=== PATIENT | male | born 1975 | race African-American/Black ===

== ENCOUNTER 2020-09-25 22:39 | Inpatient (IN) | payer OTHER ==
[2020-09-25] MEDS ORDERED: Piperacillin/Tazobactam 4.5 GM VIAL ONE (23:10)
[2020-09-25] MEDS ORDERED: cefTRIAXone\\ROCEPHIN 2 GM VIAL ONE (23:10)
[2020-09-25 23:28] LABS: Hemoglobin 10.1 g/dL (13.5-17.5); Mean Corpuscular HGB CONC 31.9 g/dL (32.0-36.0); Mean Corpuscular Hemoglobin 26.4 pg (27.0-33.0); Mean Platelet Volume 8.5 fl (7.4-10.4); Platelet Count 327 10x3/uL (150-450); RBC Distribution Width 14.7 % (11.5-14.5); Red Blood Cell (RBC) Count 3.82 10x6/uL (4.32-5.72); White Blood Cell (WBC) Count 24.8 10x3/uL (3.5-10.5)
[2020-09-25 23:41] LABS: PTT 41.4 sec (22.0-33.0)
[2020-09-25 23:45] LABS: ALT (SGPT) 11 U/L (8-55); AST (SGOT) 10 U/L (5-34); Albumin 3.5 g/dL (3.5-5.0); Alkaline Phosphatase 65 U/L (40-110); Anion Gap 12 mmol/L (10-20); BUN (Urea Nitrogen) 9 mg/dL (8.9-20.6); Bilirubin, Total 0.3 mg/dL (0.2-1.2); Calc. Creatinine Clearance 0 mL/min (70-130); Calcium 8.6 mg/dL (7.8-10.44); Carbon Dioxide 22 mmol/L (22-29); Chloride 104 mmol/L (98-107); Globulin 3.9 g/dL (2.4-3.5); Glucose 93 mg/dL (70-105); Potassium 3.1 mmol/L (3.5-5.1); Protein, Total 7.4 g/dL (6.0-8.3); Sodium 135 mmol/L (136-145)
[2020-09-26] MEDS ORDERED: Potassium Chloride 20 MEQ TAB ONE (00:11)
[2020-09-26 00:41] LABS: Band 10 % (5-11); Eosinophils 1 % (0-10); Lymphocytes 8 % (21-51); Monocytes 6 % (0-10); Reactive Lymphocytes 2 % (0-10)
[2020-09-26 00:42] LABS: Neutrophil 73 % (42-75)
[2020-09-26 00:43] LABS: Anisocytosis SLIGHT = 6-15 cells (100X) (0-5/hpf); Microcytosis SLIGHT = 6-15 cells (100X) (0-5/hpf)
[2020-09-26 00:44] LABS: Dohle Bodies SLIGHT; Large Platelets SLIGHT; Platelet Morphology Comment Appears Adequate
[2020-09-26 00:45] LABS: MDiff Complete? YES; Manual Diff?? YES
[2020-09-26] MEDS ORDERED: Morphine 4 MG/ML VIAL ONE (01:02)
[2020-09-26 01:55] LABS: Bilirubin Neg (Negative); Blood, Urine 150 (Negative); Clarity Clear (Clear); Glucose, Urine (Dipstick) Normal (Negative); Ketone, Urine Negative (Negative); Leukocyte 100 (Negative); Nitrite Positive (Negative); Protein, Urine (Dipstick) Negative (Neg-Trace); Specific Gravity, Urine 1.005 (1.002-1.036); Urobilinogen Normal mg/dL (Less than 2)
[2020-09-26 02:32] LABS: Bacteria/HPF 2+ HPF (None Seen); Mucous/LPF Rare LPF (<2+); Squamous Epithelial 0-3 HPF (0-3)
[2020-09-26] MEDS ORDERED: Ibuprofen 200 MG TAB ONE (03:00)
[2020-09-26] MEDS ORDERED: Piperacillin/Tazobactam 4.5 GM VIAL ONE ×2 (04:17→08:48)
[2020-09-26] MEDS ORDERED: Acetaminophen 500 MG TAB ONE (04:48)
[2020-09-26] MEDS ORDERED: HYDROcodone/Acetaminophen 5/325 mg Tablet ONE (07:16)
[2020-09-26] MEDS ORDERED: Piperacillin/Tazobactam 3.375 GM VIAL ONE ×3 (09:21→16:04)
[2020-09-26] MEDS ORDERED: Acetaminophen 325 MG TAB PO PRN (09:51)
[2020-09-26] MEDS ORDERED: Senokot S 8.6-50 MG TAB PO PRN (09:51)
[2020-09-26] MEDS ORDERED: Potassium Chloride 20 MEQ TAB PO SCH (13:45)
[2020-09-26] MEDS ORDERED: Gabapentin 300 MG CAP PO SCH (15:00)
[2020-09-26] MEDS ORDERED: Baclofen 10 MG TAB PO SCH (15:00)
[2020-09-26] MEDS: Piperacillin/Tazobactam 3.375 GM in Sodium Chloride 0.9% 100 ML IVPB SCH ×2 (16:14→23:47)
[2020-09-26 21:21] VITALS: BMI 28.8
[2020-09-26] MEDS: Gabapentin 300 MG CAP PO SCH (21:46)
[2020-09-26] MEDS: HYDROcodone/Acetaminophen 5/325 mg Tablet PO PRN (21:47)
[2020-09-26] MEDS: Famotidine 20 MG TAB PO SCH (21:47)
[2020-09-26] MEDS: Baclofen 10 MG TAB PO SCH (21:50)
[2020-09-26] MEDS: Linezolid 600 MG in Premix Bag 1 BAG IVPB SCH (21:51)
[2020-09-27] MEDS: HYDROcodone/Acetaminophen 5/325 mg Tablet PO PRN ×4 (04:37→22:23)
[2020-09-27] MEDS: Piperacillin/Tazobactam 3.375 GM in Sodium Chloride 0.9% 100 ML IVPB SCH ×3 (04:50→22:25)
[2020-09-27 06:10] LABS: #Eosinphils 0.4 10x3/uL (0.0-0.5); #Monocytes 0.7 10x3/uL (0.0-1.1); #Neutrophils 14.7 10x3/uL (1.5-8.4); %Basophils 0.2 % (0.0-2.0); %Eosinophils 2.1 % (0.0-6.0); %Lymphocytes 11.2 % (18.0-47.0); %Monocytes 4.1 % (0.0-10.0); %Neutrophils 81.6 % (40.0-75.0); Hemoglobin 9.3 g/dL (13.5-17.5); Mean Corpuscular HGB CONC 31.2 g/dL (32.0-36.0); Mean Corpuscular Hemoglobin 26.2 pg (27.0-33.0); Mean Corpuscular Volume 83.9 fl (81.2-95.1); Mean Platelet Volume 8.5 fl (7.4-10.4); Platelet Count 310 10x3/uL (150-450); RBC Distribution Width 14.9 % (11.5-14.5); Red Blood Cell (RBC) Count 3.55 10x6/uL (4.32-5.72)
[2020-09-27 06:23] LABS: Anion Gap 12 mmol/L (10-20); BUN (Urea Nitrogen) 7 mg/dL (8.9-20.6); Calc. Creatinine Clearance 181 mL/min (70-130); Calcium 8.3 mg/dL (7.8-10.44); Carbon Dioxide 21 mmol/L (22-29); Chloride 106 mmol/L (98-107); Glucose 86 mg/dL (70-105); Potassium 3.7 mmol/L (3.5-5.1); Sodium 135 mmol/L (136-145)
[2020-09-27] MEDS ORDERED: FLU VACC QS2020-21(6MOS UP)/PF 60 MCG/0.5 ML SYRINGE IM ONE (09:00)
[2020-09-27] MEDS: Lisinopril 20 MG TAB PO SCH (09:02)
[2020-09-27] MEDS: Baclofen 10 MG TAB PO SCH ×3 (09:03→21:43)
[2020-09-27] MEDS: Gabapentin 300 MG CAP PO SCH ×3 (09:03→21:42)
[2020-09-27] MEDS: Famotidine 20 MG TAB PO SCH ×2 (09:04→21:28)
[2020-09-27] MEDS: Hydrochlorothiazide 25 MG TAB PO SCH (09:11)
[2020-09-27] MEDS: Linezolid 600 MG in Premix Bag 1 BAG IVPB SCH ×2 (09:12→21:31)
[2020-09-27 10:23] LABS: INR-International Normal Ratio 1.8; Prothrombin Time 18.7 sec (9.5-12.1)
[2020-09-27] MEDS: tiZANidine HCl 4 MG TAB PO SCH (21:27)
[2020-09-27] MEDS: Warfarin Sodium 10 MG TAB PO SCH (21:43)
[2020-09-28] MEDS: HYDROcodone/Acetaminophen 5/325 mg Tablet PO PRN ×4 (05:04→21:02)
[2020-09-28] MEDS: Piperacillin/Tazobactam 3.375 GM in Sodium Chloride 0.9% 100 ML IVPB SCH ×3 (05:15→21:03)
[2020-09-28 06:46] LABS: #Eosinphils 0.4 10x3/uL (0.0-0.5); #Monocytes 0.5 10x3/uL (0.0-1.1); %Basophils 0.2 % (0.0-2.0); %Eosinophils 3.3 % (0.0-6.0); %Lymphocytes 16.3 % (18.0-47.0); %Monocytes 4.4 % (0.0-10.0); Hemoglobin 9.7 g/dL (13.5-17.5); Mean Corpuscular HGB CONC 31.2 g/dL (32.0-36.0); Mean Corpuscular Hemoglobin 26.1 pg (27.0-33.0); Mean Corpuscular Volume 83.6 fl (81.2-95.1); Mean Platelet Volume 8.8 fl (7.4-10.4); Platelet Count 359 10x3/uL (150-450); RBC Distribution Width 14.7 % (11.5-14.5); Red Blood Cell (RBC) Count 3.72 10x6/uL (4.32-5.72)
[2020-09-28 06:53] LABS: Anion Gap 12 mmol/L (10-20); BUN (Urea Nitrogen) 4 mg/dL (8.9-20.6); Calc. Creatinine Clearance 186 mL/min (70-130); Calcium 8.8 mg/dL (7.8-10.44); Carbon Dioxide 26 mmol/L (22-29); Chloride 106 mmol/L (98-107); Glucose 93 mg/dL (70-105); Potassium 3.7 mmol/L (3.5-5.1); Sodium 140 mmol/L (136-145)
[2020-09-28 07:01] LABS: INR-International Normal Ratio 1.7; Prothrombin Time 17.8 sec (9.5-12.1)
[2020-09-28] MEDS: Lisinopril 20 MG TAB PO SCH (09:28)
[2020-09-28] MEDS: Famotidine 20 MG TAB PO SCH ×2 (09:28→21:02)
[2020-09-28] MEDS: tiZANidine HCl 4 MG TAB PO SCH ×2 (09:28→21:02)
[2020-09-28] MEDS: Baclofen 10 MG TAB PO SCH ×3 (09:28→21:02)
[2020-09-28] MEDS: Gabapentin 300 MG CAP PO SCH ×3 (09:29→21:04)
[2020-09-28] MEDS: Linezolid 600 MG in Premix Bag 1 BAG IVPB SCH ×2 (09:30→21:03)
[2020-09-28] MEDS: Hydrochlorothiazide 25 MG TAB PO SCH (09:31)
[2020-09-28] MEDS: Warfarin Sodium 10 MG TAB PO SCH (16:15)
[2020-09-29] MEDS: Loperamide HCl 2 MG CAP PO PRN (01:41)
[2020-09-29] MEDS: HYDROcodone/Acetaminophen 5/325 mg Tablet PO PRN ×4 (01:41→16:04)
[2020-09-29] MEDS: Piperacillin/Tazobactam 3.375 GM in Sodium Chloride 0.9% 100 ML IVPB SCH ×3 (05:11→21:25)
[2020-09-29 06:57] LABS: #Eosinphils 0.3 10x3/uL (0.0-0.5); #Monocytes 0.4 10x3/uL (0.0-1.1); #Neutrophils 6.9 10x3/uL (1.5-8.4); %Basophils 0.2 % (0.0-2.0); %Eosinophils 2.9 % (0.0-6.0); %Lymphocytes 21.2 % (18.0-47.0); %Monocytes 4.5 % (0.0-10.0); %Neutrophils 70.4 % (40.0-75.0); Hemoglobin 10.1 g/dL (13.5-17.5); Mean Corpuscular HGB CONC 30.6 g/dL (32.0-36.0); Mean Corpuscular Volume 85.1 fl (81.2-95.1); Mean Platelet Volume 8.4 fl (7.4-10.4); Platelet Count 449 10x3/uL (150-450); RBC Distribution Width 14.8 % (11.5-14.5); Red Blood Cell (RBC) Count 3.88 10x6/uL (4.32-5.72); White Blood Cell (WBC) Count 9.8 10x3/uL (3.5-10.5)
[2020-09-29 07:10] LABS: Anion Gap 12 mmol/L (10-20); BUN (Urea Nitrogen) 6 mg/dL (8.9-20.6); Calc. Creatinine Clearance 169 mL/min (70-130); Calcium 9.2 mg/dL (7.8-10.44); Carbon Dioxide 26 mmol/L (22-29); Chloride 106 mmol/L (98-107); Glucose 113 mg/dL (70-105); Potassium 4.4 mmol/L (3.5-5.1); Sodium 140 mmol/L (136-145)
[2020-09-29 07:21] LABS: INR-International Normal Ratio 2.1; Prothrombin Time 20.8 sec (9.5-12.1)
[2020-09-29] MEDS: Baclofen 10 MG TAB PO SCH ×3 (10:42→21:21)
[2020-09-29] MEDS: tiZANidine HCl 4 MG TAB PO SCH ×2 (10:42→21:21)
[2020-09-29] MEDS: Lisinopril 20 MG TAB PO SCH (10:43)
[2020-09-29] MEDS: Famotidine 20 MG TAB PO SCH ×2 (10:43→21:21)
[2020-09-29] MEDS: Gabapentin 300 MG CAP PO SCH ×3 (10:43→21:21)
[2020-09-29] MEDS: Hydrochlorothiazide 25 MG TAB PO SCH (10:44)
[2020-09-29] MEDS: Linezolid 600 MG in Premix Bag 1 BAG IVPB SCH ×2 (10:44→21:22)
[2020-09-29] MEDS: Warfarin Sodium 10 MG TAB PO SCH (16:06)
[2020-09-29 20:59] LABS: SARS-CoV-2 PCR by NAA Not Detected (NotDetected)
[2020-09-30] MEDS: HYDROcodone/Acetaminophen 5/325 mg Tablet PO PRN ×3 (00:25→14:11)
[2020-09-30] MEDS: Loperamide HCl 2 MG CAP PO PRN ×2 (01:19→11:24)
[2020-09-30] MEDS: Piperacillin/Tazobactam 3.375 GM in Sodium Chloride 0.9% 100 ML IVPB SCH ×2 (06:15→13:19)
[2020-09-30] MEDS: Linezolid 600 MG in Premix Bag 1 BAG IVPB SCH (08:24)
[2020-09-30] MEDS: Famotidine 20 MG TAB PO SCH (08:24)
[2020-09-30] MEDS: Lisinopril 20 MG TAB PO SCH (08:24)
[2020-09-30] MEDS: Baclofen 10 MG TAB PO SCH ×2 (08:24→13:19)
[2020-09-30] MEDS: Hydrochlorothiazide 25 MG TAB PO SCH (08:25)
[2020-09-30] MEDS: tiZANidine HCl 4 MG TAB PO SCH (08:25)
[2020-09-30] MEDS: Gabapentin 300 MG CAP PO SCH ×2 (08:25→13:19)
[2020-09-30 12:37] VITALS: BP 154/71; TEMP 98.2
== END 2020-09-30 16:48 | DRG 871 ==
LOC: CSHERS 22:39 → EEVIPCON 09-26 09:00 → CSHERHOLD 09-26 09:00 → CSHPP 09-26 18:46 → CSHERHOLD 09-26 18:46 → CSHTELE 09-26 18:51 → OBSVTOIN 09-28 09:33
PROVIDERS: ADMIT Family Medicine; ATTEND Family Medicine
DX: A41.9 Sepsis, unspecified organism (principal); G82.50 Quadriplegia, unspecified; N39.0 Urinary tract infection, site not specified; L03.116 Cellulitis of left lower limb; Z20.822 Contact with and (suspected) exposure to COVID-19; I82.412 Acute embolism and thrombosis of left femoral vein; I10 Essential (primary) hypertension; Z99.3 Dependence on wheelchair; Z79.01 Long term (current) use of anticoagulants; Z79.899 Other long term (current) drug therapy; Z88.1 Allergy status to other antibiotic agents
CPT/HCPCS: 36415; 71045; 80048; 80053; 81003; 81015; 83605; 85025; 85610; 85652; 85730; 86140; 87040; 87086; 87635; 93005; 96365; 96366; 96367; 96374; 96375; 96376; G0378; J0696; J2020; J2270; J2543; J3490; U0003; U0005

== ENCOUNTER 2021-06-19 15:00 | Inpatient (IN) | payer OTHER ==
[2021-06-19 17:13] LABS: Prothrombin Time 10.9 sec (9.5-12.1)
[2021-06-19 17:14] LABS: #Basophils 0.1 10x3/uL (0.0-0.2); #Eosinphils 0.2 10x3/uL (0.0-0.5); #Monocytes 0.6 10x3/uL (0.0-1.1); #Neutrophils 10.5 10x3/uL (1.5-8.4); %Basophils 0.4 % (0.0-2.0); %Eosinophils 2.5 % (0.0-6.0); %Lymphocytes 10.8 % (18.0-47.0); %Monocytes 4.4 % (0.0-10.0); Hemoglobin 12.1 g/dL (13.5-17.5); Mean Corpuscular HGB CONC 30.4 g/dL (32.0-36.0); Mean Corpuscular Hemoglobin 24.8 pg (27.0-33.0); Mean Corpuscular Volume 81.7 fl (81.2-95.1); Mean Platelet Volume 9.1 fl (7.4-10.4); Platelet Count 385 10x3/uL (150-450); RBC Distribution Width 15.3 % (11.5-14.5); Red Blood Cell (RBC) Count 4.87 10x6/uL (4.32-5.72); White Blood Cell (WBC) Count 12.8 10x3/uL (3.5-10.5)
[2021-06-19 17:15] LABS: ALT (SGPT) 15 U/L (8-55); AST (SGOT) 15 U/L (5-34); Albumin 3.9 g/dL (3.5-5.0); Alkaline Phosphatase 72 U/L (40-110); Anion Gap 13 mmol/L (10-20); BUN (Urea Nitrogen) 8 mg/dL (8.9-20.6); Bilirubin, Total 0.6 mg/dL (0.2-1.2); Calc. Creatinine Clearance 0 mL/min (70-130); Calcium 9.8 mg/dL (7.8-10.44); Carbon Dioxide 24 mmol/L (22-29); Globulin 5.1 g/dL (2.4-3.5); Glucose 94 mg/dL (70-105); Potassium 3.8 mmol/L (3.5-5.1); Sodium 135 mmol/L (136-145)
[2021-06-19 17:31] LABS: Bilirubin Neg (Negative); Blood, Urine 50 (Negative); Clarity Clear (Clear); Glucose, Urine (Dipstick) Normal (Negative); Ketone, Urine Negative (Negative); Leukocyte 25 (Negative); Nitrite Negative (Negative); Protein, Urine (Dipstick) Negative (Neg-Trace); Specific Gravity, Urine 1.005 (1.002-1.036)
[2021-06-19 17:31] LABS: Chloride 102 mmol/L (98-107)
[2021-06-19 17:50] LABS: Large Platelets SLIGHT; Platelet Morphology Comment Appears Adequate; RBC Morphology Normal
[2021-06-19 18:17] LABS: Bacteria/HPF None Seen HPF (None Seen); RBC/HPF 0-3 HPF (0-3); Squamous Epithelial 0-3 HPF (0-3); WBC/HPF None Seen HPF (0-3)
[2021-06-19] MEDS ORDERED: Senokot S 8.6-50 MG TAB PO PRN (20:42)
[2021-06-19] MEDS ORDERED: Acetaminophen 325 MG TAB PO PRN (20:42)
[2021-06-19 21:30] VITALS: BMI 21.7
[2021-06-19] MEDS ORDERED: Baclofen 10 MG TAB PO SCH (21:45)
[2021-06-19] MEDS ORDERED: Gabapentin 400 MG CAP PO SCH (21:45)
[2021-06-19] MEDS ORDERED: Vancomycin 1.5 GRAM/300 ML BAG 1.5 GM in Premix Bag 1 BAG IVPB SCH (22:00)
[2021-06-19] MEDS: Cefepime 2 GM in Sodium Chloride 0.9% 100 ML IVPB SCH (22:20)
[2021-06-19] MEDS: Lactated Ringer's 1,000 ML IV SCH (22:20)
[2021-06-20] MEDS: HYDROcodone/Acetaminophen 5/325 mg Tablet PO PRN ×4 (05:38→22:21)
[2021-06-20] MEDS: Cefepime 2 GM in Sodium Chloride 0.9% 100 ML IVPB SCH ×3 (05:39→22:20)
[2021-06-20 05:54] LABS: Anion Gap 10 mmol/L (10-20); BUN (Urea Nitrogen) 7 mg/dL (8.9-20.6); Calc. Creatinine Clearance 131 mL/min (70-130); Calcium 8.6 mg/dL (7.8-10.44); Carbon Dioxide 24 mmol/L (22-29); Chloride 107 mmol/L (98-107); Glucose 104 mg/dL (70-105); Potassium 3.8 mmol/L (3.5-5.1); Sodium 137 mmol/L (136-145)
[2021-06-20 05:59] LABS: #Eosinphils 0.5 10x3/uL (0.0-0.5); #Monocytes 0.8 10x3/uL (0.0-1.1); #Neutrophils 7.8 10x3/uL (1.5-8.4); %Basophils 0.4 % (0.0-2.0); %Eosinophils 4.2 % (0.0-6.0); %Lymphocytes 15.7 % (18.0-47.0); %Monocytes 7.7 % (0.0-10.0); %Neutrophils 71.4 % (40.0-75.0); Hemoglobin 8.7 g/dL (13.5-17.5); Mean Corpuscular HGB CONC 30.7 g/dL (32.0-36.0); Mean Corpuscular Hemoglobin 25.1 pg (27.0-33.0); Mean Corpuscular Volume 81.8 fl (81.2-95.1); Mean Platelet Volume 8.6 fl (7.4-10.4); Platelet Count 334 10x3/uL (150-450); RBC Distribution Width 15.3 % (11.5-14.5); Red Blood Cell (RBC) Count 3.46 10x6/uL (4.32-5.72); White Blood Cell (WBC) Count 10.9 10x3/uL (3.5-10.5)
[2021-06-20] MEDS: Vancomycin HCl 1 GM in Sodium Chloride 0.9% 250 ML 250 ML IVPB SCH ×2 (06:35→14:23)
[2021-06-20] MEDS: Lactated Ringer's 1,000 ML IV SCH ×2 (07:54→13:19)
[2021-06-20] MEDS ORDERED: FLU VACC QS2021-22(6MOS UP)/PF 60 MCG/0.5 ML SYRINGE IM ONE (09:00)
[2021-06-20] MEDS: Baclofen 10 MG TAB PO SCH ×3 (10:09→21:18)
[2021-06-20] MEDS: Gabapentin 400 MG CAP PO SCH ×3 (10:10→21:18)
[2021-06-20] MEDS: Enoxaparin Sodium 40 MG/0.4 ML SYRINGE SC SCH (10:11)
[2021-06-20] MEDS ORDERED: Sodium Chloride 0.9% 250 ML 250 ML ONE (14:21)
[2021-06-20 15:47] LABS: SARS-CoV-2 PCR by NAA Not Detected (NotDetected)
[2021-06-20] MEDS: Warfarin Sodium 5 MG TAB PO SCH (17:54)
[2021-06-20 21:33] LABS: Vancomycin, Trough 13.5 ug/mL
[2021-06-20 21:36] LABS: ALT (SGPT) 12 U/L (8-55); AST (SGOT) 11 U/L (5-34); Albumin 3.3 g/dL (3.5-5.0); Alkaline Phosphatase 61 U/L (40-110); Bilirubin, Direct 0.1 mg/dL (0.1-0.3); Bilirubin, Total 0.2 mg/dL (0.2-1.2); Protein, Total 7.6 g/dL (6.0-8.3)
[2021-06-21] MEDS: HYDROcodone/Acetaminophen 5/325 mg Tablet PO PRN ×4 (04:34→21:50)
[2021-06-21 04:40] LABS: #Eosinphils 0.6 10x3/uL (0.0-0.5); #Monocytes 0.9 10x3/uL (0.0-1.1); %Basophils 0.4 % (0.0-2.0); %Eosinophils 5.9 % (0.0-6.0); %Lymphocytes 17.9 % (18.0-47.0); %Monocytes 8.8 % (0.0-10.0); %Neutrophils 66.3 % (40.0-75.0); Hemoglobin 9.1 g/dL (13.5-17.5); Mean Corpuscular Hemoglobin 25.1 pg (27.0-33.0); Mean Corpuscular Volume 81.2 fl (81.2-95.1); Mean Platelet Volume 8.7 fl (7.4-10.4); Platelet Count 361 10x3/uL (150-450); RBC Distribution Width 15.3 % (11.5-14.5); Red Blood Cell (RBC) Count 3.62 10x6/uL (4.32-5.72); White Blood Cell (WBC) Count 10.5 10x3/uL (3.5-10.5)
[2021-06-21 04:51] LABS: PTT 26.2 sec (22.0-33.0); Prothrombin Time 10.8 sec (9.5-12.1)
[2021-06-21 04:58] LABS: Anion Gap 9 mmol/L (10-20); BUN (Urea Nitrogen) 6 mg/dL (8.9-20.6); Calc. Creatinine Clearance 122 mL/min (70-130); Calcium 9.2 mg/dL (7.8-10.44); Carbon Dioxide 28 mmol/L (22-29); Chloride 105 mmol/L (98-107); Glucose 120 mg/dL (70-105); Potassium 3.7 mmol/L (3.5-5.1); Sodium 138 mmol/L (136-145)
[2021-06-21] MEDS: Cefepime 2 GM in Sodium Chloride 0.9% 100 ML IVPB SCH ×3 (05:16→21:50)
[2021-06-21] MEDS: Gabapentin 400 MG CAP PO SCH ×3 (09:22→21:49)
[2021-06-21] MEDS: Baclofen 10 MG TAB PO SCH ×3 (09:22→21:49)
[2021-06-21] MEDS: Enoxaparin Sodium 40 MG/0.4 ML SYRINGE SC SCH (09:23)
[2021-06-21] MEDS: Warfarin Sodium 5 MG TAB PO SCH (16:23)
[2021-06-21 18:15] LABS: HIV (1/2) Antibody/Antigen Non-Reactive (NonReactive); Thyroid Stimulating Hormone 1.5989 uIU/mL (0.35-4.94)
[2021-06-22 05:45] LABS: #Eosinphils 0.6 10x3/uL (0.0-0.5); #Monocytes 0.6 10x3/uL (0.0-1.1); #Neutrophils 4.9 10x3/uL (1.5-8.4); %Basophils 0.3 % (0.0-2.0); %Lymphocytes 22.4 % (18.0-47.0); %Monocytes 7.4 % (0.0-10.0); %Neutrophils 61.9 % (40.0-75.0); Hemoglobin 9.2 g/dL (13.5-17.5); Mean Corpuscular HGB CONC 30.8 g/dL (32.0-36.0); Mean Corpuscular Hemoglobin 25.2 pg (27.0-33.0); Mean Corpuscular Volume 81.9 fl (81.2-95.1); Platelet Count 409 10x3/uL (150-450); RBC Distribution Width 15.1 % (11.5-14.5); Red Blood Cell (RBC) Count 3.65 10x6/uL (4.32-5.72); White Blood Cell (WBC) Count 7.9 10x3/uL (3.5-10.5)
[2021-06-22 05:51] LABS: Prothrombin Time 11.2 sec (9.5-12.1)
[2021-06-22] MEDS: Cefepime 2 GM in Sodium Chloride 0.9% 100 ML IVPB SCH ×2 (05:59→15:40)
[2021-06-22 06:01] LABS: Anion Gap 10 mmol/L (10-20); BUN (Urea Nitrogen) 9 mg/dL (8.9-20.6); Calc. Creatinine Clearance 127 mL/min (70-130); Calcium 9.4 mg/dL (7.8-10.44); Carbon Dioxide 29 mmol/L (22-29); Chloride 104 mmol/L (98-107); Glucose 110 mg/dL (70-105); Potassium 4.1 mmol/L (3.5-5.1); Sodium 139 mmol/L (136-145)
[2021-06-22] MEDS: Gabapentin 400 MG CAP PO SCH ×3 (09:11→21:59)
[2021-06-22] MEDS: Baclofen 10 MG TAB PO SCH ×4 (09:12→22:02)
[2021-06-22] MEDS: Ferrous Sulfate 325 MG TAB PO SCH (09:12)
[2021-06-22] MEDS: HYDROcodone/Acetaminophen 5/325 mg Tablet PO PRN ×3 (09:12→22:00)
[2021-06-22] MEDS: Enoxaparin Sodium 40 MG/0.4 ML SYRINGE SC SCH (09:13)
[2021-06-22] MEDS: Warfarin Sodium 5 MG TAB PO SCH (15:42)
[2021-06-22] MEDS: cefTRIAXone\\ROCEPHIN 2 GM in Sodium Chloride 0.9% 100 ML IVPB SCH (21:58)
[2021-06-23 05:29] LABS: #Eosinphils 0.4 10x3/uL (0.0-0.5); #Monocytes 0.5 10x3/uL (0.0-1.1); #Neutrophils 4.8 10x3/uL (1.5-8.4); %Basophils 0.4 % (0.0-2.0); %Eosinophils 4.7 % (0.0-6.0); %Lymphocytes 25.1 % (18.0-47.0); %Monocytes 6.7 % (0.0-10.0); %Neutrophils 61.6 % (40.0-75.0); Hemoglobin 9.8 g/dL (13.5-17.5); Mean Corpuscular HGB CONC 30.6 g/dL (32.0-36.0); Mean Corpuscular Hemoglobin 25.1 pg (27.0-33.0); Mean Corpuscular Volume 81.8 fl (81.2-95.1); Mean Platelet Volume 8.8 fl (7.4-10.4); Platelet Count 452 10x3/uL (150-450); RBC Distribution Width 15.1 % (11.5-14.5); Red Blood Cell (RBC) Count 3.91 10x6/uL (4.32-5.72); White Blood Cell (WBC) Count 7.8 10x3/uL (3.5-10.5)
[2021-06-23 05:39] LABS: Anion Gap 11 mmol/L (10-20); BUN (Urea Nitrogen) 9 mg/dL (8.9-20.6); Calc. Creatinine Clearance 127 mL/min (70-130); Calcium 9.2 mg/dL (7.8-10.44); Carbon Dioxide 29 mmol/L (22-29); Chloride 103 mmol/L (98-107); Glucose 125 mg/dL (70-105); Sodium 139 mmol/L (136-145)
[2021-06-23 08:52] LABS: INR-International Normal Ratio 1.1; Prothrombin Time 12.1 sec (9.5-12.1)
[2021-06-23] MEDS: Gabapentin 400 MG CAP PO SCH ×3 (09:11→21:34)
[2021-06-23] MEDS: Baclofen 10 MG TAB PO SCH ×3 (09:12→21:33)
[2021-06-23] MEDS: Ferrous Sulfate 325 MG TAB PO SCH (09:12)
[2021-06-23] MEDS: Enoxaparin Sodium 40 MG/0.4 ML SYRINGE SC SCH (09:38)
[2021-06-23 10:27] LABS: Bilirubin Neg (Negative); Blood, Urine 150 (Negative); Clarity Cloudy (Clear); Glucose, Urine (Dipstick) Normal (Negative); Ketone, Urine Negative (Negative); Leukocyte 500 (Negative); Nitrite Negative (Negative); Protein, Urine (Dipstick) 15 mg/dl (Neg-Trace); Specific Gravity, Urine 1.015 (1.002-1.036); Urobilinogen Normal mg/dL (Less than 2)
[2021-06-23 10:39] LABS: Bacteria/HPF 1+ HPF (None Seen); Mucous/LPF 1+ LPF (<2+); Yeast-Budding 1+ HPF (None Seen); Yeast-Hyphae 2+ HPF (None Seen)
[2021-06-23] MEDS: HYDROcodone/Acetaminophen 5/325 mg Tablet PO PRN ×2 (15:43→21:33)
[2021-06-23] MEDS: Warfarin Sodium 5 MG TAB PO SCH (17:29)
[2021-06-23] MEDS: cefTRIAXone\\ROCEPHIN 2 GM in Sodium Chloride 0.9% 100 ML IVPB SCH (21:34)
[2021-06-24 04:30] LABS: INR-International Normal Ratio 1.2; Prothrombin Time 13.1 sec (9.5-12.1)
[2021-06-24] MEDS: HYDROcodone/Acetaminophen 5/325 mg Tablet PO PRN ×3 (08:33→21:11)
[2021-06-24] MEDS: Gabapentin 400 MG CAP PO SCH ×3 (08:33→21:12)
[2021-06-24] MEDS: Baclofen 10 MG TAB PO SCH ×3 (08:34→21:11)
[2021-06-24] MEDS: Ferrous Sulfate 325 MG TAB PO SCH (08:34)
[2021-06-24] MEDS: Enoxaparin Sodium 40 MG/0.4 ML SYRINGE SC SCH (08:34)
[2021-06-24] MEDS ORDERED: Warfarin Sodium 5 MG TAB PO SCH (17:00)
[2021-06-24] MEDS ORDERED: Sodium Chloride 0.9% 100 ML ONE (20:28)
[2021-06-24] MEDS: cefTRIAXone\\ROCEPHIN 2 GM in Sodium Chloride 0.9% 100 ML IVPB SCH (21:15)
[2021-06-24 23:44] VITALS: BP 157/102; TEMP 98.3
[2021-06-25 16:36] LABS: QuantiFERON-TB Gold Plus Negative (Negative)
== END 2021-06-24 22:15 | DRG 872 ==
LOC: CSHERS 15:00 → EEVIPCON 15:00 → CSHTELE 21:24
PROVIDERS: ADMIT Family Medicine; ATTEND Family Medicine
DX: A41.9 Sepsis, unspecified organism (principal); G82.20 Paraplegia, unspecified; R82.1 Myoglobinuria; Z20.822 Contact with and (suspected) exposure to COVID-19; N41.9 Inflammatory disease of prostate, unspecified; K40.20 Bilateral inguinal hernia, without obstruction or gangrene, not specified as recurrent; R79.1 Abnormal coagulation profile; I10 Essential (primary) hypertension; N28.1 Cyst of kidney, acquired; R31.9 Hematuria, unspecified; K76.9 Liver disease, unspecified; R82.81 Pyuria; R59.1 Generalized enlarged lymph nodes; Z79.01 Long term (current) use of anticoagulants; Z86.718 Personal history of other venous thrombosis and embolism
CPT/HCPCS: 36415; 71045; 74177; 80048; 80053; 80076; 80202; 81001; 81003; 81015; 82550; 83605; 83735; 84443; 85025; 85610; 85730; 86480; 87040; 87086; 87389; 87804; 93306; 93970; J0692; J0696; J1650; J1885; J3370; J3490; J7050; J7120; U0003; U0005

== ENCOUNTER 2021-11-11 23:29 | Emergency (ER) | payer OTHER ==
[2021-11-12 02:06] LABS: #Eosinphils 0.3 10x3/uL (0.0-0.5); #Monocytes 0.7 10x3/uL (0.0-1.1); #Neutrophils 4.9 10x3/uL (1.5-8.4); %Basophils 0.5 % (0.0-2.0); %Eosinophils 3.8 % (0.0-6.0); %Lymphocytes 26.3 % (18.0-47.0); %Monocytes 8.5 % (0.0-10.0); %Neutrophils 60.5 % (40.0-75.0); Hemoglobin 11.9 g/dL (13.5-17.5); Mean Corpuscular HGB CONC 31.8 g/dL (32.0-36.0); Mean Corpuscular Hemoglobin 25.1 pg (27.0-33.0); Mean Corpuscular Volume 78.7 fl (81.2-95.1); Mean Platelet Volume 8.3 fl (7.4-10.4); Platelet Count 417 10x3/uL (150-450); RBC Distribution Width 14.2 % (11.5-14.5); Red Blood Cell (RBC) Count 4.75 10x6/uL (4.32-5.72); White Blood Cell (WBC) Count 8.1 10x3/uL (3.5-10.5)
[2021-11-12 02:20] LABS: ALT (SGPT) 21 U/L (8-55); AST (SGOT) 18 U/L (5-34); Alkaline Phosphatase 89 U/L (40-110); Anion Gap 12 mmol/L (10-20); BUN (Urea Nitrogen) 10 mg/dL (8.9-20.6); Bilirubin, Total 0.3 mg/dL (0.2-1.2); Calc. Creatinine Clearance 0 mL/min (70-130); Calcium 9.4 mg/dL (7.8-10.44); Carbon Dioxide 27 mmol/L (22-29); Chloride 100 mmol/L (98-107); Globulin 4.5 g/dL (2.4-3.5); Glucose 104 mg/dL (70-105); Potassium 3.9 mmol/L (3.5-5.1); Protein, Total 8.5 g/dL (6.0-8.3); Sodium 135 mmol/L (136-145)
[2021-11-12 02:29] LABS: Bilirubin Neg (Negative); Blood, Urine 250 (Negative); Glucose, Urine (Dipstick) Normal (Negative); Ketone, Urine Negative (Negative); Leukocyte 500 (Negative); Nitrite Positive (Negative); Protein, Urine (Dipstick) 30 mg/dl (Neg-Trace); Specific Gravity, Urine 1.015 (1.002-1.036); pH, Urine 6.5 (5.0-9.0)
[2021-11-12 02:30] LABS: Clarity Turbid (Clear)
[2021-11-12 02:40] LABS: Bacteria/HPF 3+ HPF (None Seen); Squamous Epithelial 21-50 HPF (0-3); WBC/HPF 21-50 HPF (0-3); Yeast-Budding 1+ HPF (None Seen)
[2021-11-12] MEDS ORDERED: Cefepime 2 GM VIAL ONE (05:07)
[2021-11-12] MEDS ORDERED: Vancomycin HCl 500 MG VIAL ONE (05:37)
[2021-11-12] MEDS ORDERED: Ketorolac Tromethamine 30 MG/ML VIAL ONE (05:38)
[2021-11-12 06:12] LABS: SARS-CoV-2 NAA Rapid Test Not Detected (NotDetected)
[2021-11-12] MEDS ORDERED: Iopamidol 300 61% 100 ML VIAL FS ONE (10:42)
== END 2021-11-12 09:57 | disposition short-term general hospital (02) ==
LOC: CSHERS 23:29
DX: L03.314 Cellulitis of groin (principal); N39.0 Urinary tract infection, site not specified; I10 Essential (primary) hypertension; M19.90 Unspecified osteoarthritis, unspecified site; Z79.01 Long term (current) use of anticoagulants; Z79.899 Other long term (current) drug therapy; Z20.822 Contact with and (suspected) exposure to COVID-19
CPT/HCPCS: 36415; 74177; 76870; 80053; 81003; 81015; 85025; 87077; 87086; 87186; 93976; 96365; 96366; 96367; 96374; J0692; J1885; J3370; Q9967; U0002

== ENCOUNTER 2021-11-24 22:50 | Emergency (ER) | payer OTHER ==
[2021-11-24 23:48] LABS: Bilirubin Neg (Negative); Blood, Urine 150 (Negative); Clarity Slightly Cloudy (Clear); Glucose, Urine (Dipstick) Normal (Negative); Ketone, Urine 15 mg/dL (Negative); Leukocyte 500 (Negative); Nitrite Negative (Negative); Protein, Urine (Dipstick) 30 mg/dl (Neg-Trace)
[2021-11-25] LABS: Bacteria/HPF 1+ HPF (None Seen)
[2021-11-25 00:01] LABS: SARS-CoV-2 NAA Rapid Test Not Detected (NotDetected)
[2021-11-25 00:25] LABS: #Monocytes 1.1 10x3/uL (0.0-1.1); #Neutrophils 11.6 10x3/uL (1.5-8.4); %Basophils 0.3 % (0.0-2.0); %Eosinophils 0.1 % (0.0-6.0); %Lymphocytes 12.5 % (18.0-47.0); %Monocytes 7.3 % (0.0-10.0); %Neutrophils 79.4 % (40.0-75.0); Hemoglobin 10.5 g/dL (13.5-17.5); Mean Corpuscular HGB CONC 31.7 g/dL (32.0-36.0); Mean Corpuscular Hemoglobin 25.2 pg (27.0-33.0); Mean Corpuscular Volume 79.4 fl (81.2-95.1); Mean Platelet Volume 8.4 fl (7.4-10.4); Platelet Count 457 10x3/uL (150-450); RBC Distribution Width 14.6 % (11.5-14.5); Red Blood Cell (RBC) Count 4.17 10x6/uL (4.32-5.72); White Blood Cell (WBC) Count 14.6 10x3/uL (3.5-10.5)
[2021-11-25 00:34] LABS: ALT (SGPT) 20 U/L (8-55); AST (SGOT) 15 U/L (5-34); Albumin 3.7 g/dL (3.5-5.0); Alkaline Phosphatase 74 U/L (40-110); Anion Gap 14 mmol/L (10-20); BUN (Urea Nitrogen) 10 mg/dL (8.9-20.6); Bilirubin, Total 0.4 mg/dL (0.2-1.2); Calc. Creatinine Clearance 0 mL/min (70-130); Calcium 9.1 mg/dL (7.8-10.44); Carbon Dioxide 23 mmol/L (22-29); Chloride 102 mmol/L (98-107); Globulin 4.3 g/dL (2.4-3.5); Glucose 83 mg/dL (70-105); Potassium 3.9 mmol/L (3.5-5.1); Sodium 135 mmol/L (136-145)
[2021-11-25] MEDS ORDERED: Acetaminophen 325 MG TAB ONE (00:36)
[2021-11-25] MEDS ORDERED: Cefepime 2 GM VIAL ONE (00:37)
[2021-11-25 00:49] LABS: INR-International Normal Ratio 1.4; PTT 39.7 sec (22.0-33.0); Prothrombin Time 15.1 sec (9.5-12.1)
== END 2021-11-25 06:32 | disposition short-term general hospital (02) ==
LOC: CSHERS 22:50 → EEVIPCON 22:50 → CSHERS 11-25 06:32
DX: A41.9 Sepsis, unspecified organism (principal); R00.0 Tachycardia, unspecified; I10 Essential (primary) hypertension; D64.9 Anemia, unspecified; G82.20 Paraplegia, unspecified; M19.90 Unspecified osteoarthritis, unspecified site; I89.0 Lymphedema, not elsewhere classified; Z20.822 Contact with and (suspected) exposure to COVID-19; Z79.01 Long term (current) use of anticoagulants; Z79.899 Other long term (current) drug therapy
CPT/HCPCS: 36415; 71045; 80053; 81003; 81015; 83605; 85025; 85610; 85730; 87040; 87086; 93005; 96365; 96366; 96367; J0692; J3370; U0002

== ENCOUNTER 2021-12-06 23:04 | Emergency (ER) | payer OTHER ==
[2021-12-06 23:49] LABS: #Basophils 0.1 10x3/uL (0.0-0.2); #Eosinphils 0.1 10x3/uL (0.0-0.5); #Monocytes 1.4 10x3/uL (0.0-1.1); #Neutrophils 14.5 10x3/uL (1.5-8.4); %Basophils 0.3 % (0.0-2.0); %Eosinophils 0.6 % (0.0-6.0); %Lymphocytes 8.8 % (18.0-47.0); %Monocytes 7.8 % (0.0-10.0); %Neutrophils 81.6 % (40.0-75.0); Hemoglobin 8.3 g/dL (13.5-17.5); Mean Corpuscular HGB CONC 30.9 g/dL (32.0-36.0); Mean Corpuscular Hemoglobin 24.6 pg (27.0-33.0); Mean Corpuscular Volume 79.6 fl (81.2-95.1); Mean Platelet Volume 8.5 fl (7.4-10.4); Platelet Count 522 10x3/uL (150-450); RBC Distribution Width 14.7 % (11.5-14.5); Red Blood Cell (RBC) Count 3.38 10x6/uL (4.32-5.72); White Blood Cell (WBC) Count 17.8 10x3/uL (3.5-10.5)
[2021-12-06 23:59] LABS: ALT (SGPT) 16 U/L (8-55); AST (SGOT) 14 U/L (5-34); Albumin 3.1 g/dL (3.5-5.0); Alkaline Phosphatase 71 U/L (40-110); Anion Gap 14 mmol/L (10-20); BUN (Urea Nitrogen) 10 mg/dL (8.9-20.6); Bilirubin, Total 0.7 mg/dL (0.2-1.2); Calc. Creatinine Clearance 0 mL/min (70-130); Calcium 7.9 mg/dL (7.8-10.44); Carbon Dioxide 22 mmol/L (22-29); Chloride 106 mmol/L (98-107); Globulin 3.2 g/dL (2.4-3.5); Glucose 87 mg/dL (70-105); Protein, Total 6.3 g/dL (6.0-8.3); Sodium 138 mmol/L (136-145)
[2021-12-07 00:06] LABS: Bilirubin Neg (Negative); Blood, Urine 250 (Negative); Clarity Cloudy (Clear); Glucose, Urine (Dipstick) Normal (Negative); Ketone, Urine Negative (Negative); Leukocyte 500 (Negative); Nitrite Positive (Negative); Protein, Urine (Dipstick) 30 mg/dl (Neg-Trace)
[2021-12-07 00:07] LABS: Squamous Epithelial 0-3 HPF (0-3); WBC/HPF Greater than 50 HPF (0-3)
[2021-12-07 00:08] LABS: Bacteria/HPF 4+ HPF (None Seen)
[2021-12-07 00:26] LABS: SARS-CoV-2 NAA Rapid Test Not Detected (NotDetected)
[2021-12-07 00:26] LABS: INR-International Normal Ratio 1.5; PTT 35.3 sec (22.0-33.0); Prothrombin Time 15.6 sec (9.5-12.1)
[2021-12-07] MEDS ORDERED: Cefepime 2 GM VIAL ONE (00:32)
[2021-12-07] MEDS ORDERED: Clindamycin/D5W 900 MG in Premix Bag 1 BAG IVPB SCH (01:30)
[2021-12-07] MEDS ORDERED: Gabapentin 400 MG CAP PO SCH (02:30)
[2021-12-07] MEDS ORDERED: Enoxaparin Sodium 100 MG/ML SYRINGE ONE (03:10)
== END 2021-12-07 07:40 | disposition short-term general hospital (02) ==
LOC: EEVIPCON 23:04 → CSHERS 23:04
DX: A41.9 Sepsis, unspecified organism (principal); L03.317 Cellulitis of buttock; I10 Essential (primary) hypertension; D64.9 Anemia, unspecified; Z20.822 Contact with and (suspected) exposure to COVID-19; Z79.01 Long term (current) use of anticoagulants; Z79.899 Other long term (current) drug therapy
CPT/HCPCS: 80053; 81003; 81015; 83605; 85025; 85610; 85730; 87040; 87070; 87077; 87086; 87186; 87205; 96365; 96366; 96367; 96372; J0692; J1650; J3370; J3490; U0002

== ENCOUNTER 2022-01-08 19:00 | Emergency (ER) | payer OTHER ==
[2022-01-08] MEDS ORDERED: Cefepime 2 GM VIAL ONE (19:26)
[2022-01-08] MEDS ORDERED: Acetaminophen 500 MG TAB ONE (19:26)
[2022-01-08 19:34] LABS: Hemoglobin 7.5 g/dL (13.5-17.5); MDiff Complete? YES; Mean Corpuscular HGB CONC 31.4 g/dL (32.0-36.0); Mean Corpuscular Hemoglobin 24.4 pg (27.0-33.0); Mean Corpuscular Volume 77.6 fl (81.2-95.1); Mean Platelet Volume 8.6 fl (7.4-10.4); Platelet Count 552 10x3/uL (150-450); Red Blood Cell (RBC) Count 3.08 10x6/uL (4.32-5.72); White Blood Cell (WBC) Count 22.2 10x3/uL (3.5-10.5)
[2022-01-08 19:44] LABS: ALT (SGPT) 16 U/L (8-55); AST (SGOT) 12 U/L (5-34); Albumin 3.4 g/dL (3.5-5.0); Alkaline Phosphatase 68 U/L (40-110); Anion Gap 17 mmol/L (10-20); BUN (Urea Nitrogen) 10 mg/dL (8.9-20.6); Bilirubin, Total 0.5 mg/dL (0.2-1.2); Calc. Creatinine Clearance 0 mL/min (70-130); Calcium 9.2 mg/dL (7.8-10.44); Carbon Dioxide 22 mmol/L (22-29); Chloride 103 mmol/L (98-107); Estimated GFR 108; Globulin 4.7 g/dL (2.4-3.5); Glucose 88 mg/dL (70-105); Potassium 3.9 mmol/L (3.5-5.1); Protein, Total 8.1 g/dL (6.0-8.3); Sodium 138 mmol/L (136-145)
[2022-01-08 20:00] LABS: Bilirubin Neg (Negative); Blood, Urine 150 (Negative); Clarity Cloudy (Clear); Glucose, Urine (Dipstick) Normal (Negative); Ketone, Urine Negative (Negative); Leukocyte 500 (Negative); Nitrite Negative (Negative); Protein, Urine (Dipstick) 30 mg/dl (Neg-Trace); Specific Gravity, Urine 1.015 (1.002-1.036); Urobilinogen Normal mg/dL (Less than 2)
[2022-01-08 20:08] LABS: SARS-CoV-2 NAA Rapid Test Not Detected (NotDetected)
[2022-01-08 20:10] LABS: Bacteria/HPF 1+ HPF (None Seen); Yeast-Budding 1+ HPF (None Seen); Yeast-Hyphae Rare HPF (None Seen)
[2022-01-08 21:01] LABS: Eosinophils 1 % (0-10); Lymphocytes 4 % (21-51); Monocytes 5 % (0-10); Neutrophil 90 % (42-75)
[2022-01-08 21:02] LABS: Anisocytosis SLIGHT = 6-15 cells (100X) (0-5/hpf); Hypochromia MODERATE=16-30 cells (100X) (0-5/hpf); Microcytosis MODERATE=15-30 cells (100X) (0-5/hpf); Poikilocytosis MODERATE=16-30 cells (100X) (0-5/hpf)
[2022-01-08 21:03] LABS: Platelet Morphology Comment Appears Increased
== END 2022-01-09 01:48 | disposition short-term general hospital (02) ==
LOC: CSHERS 19:00
DX: A41.9 Sepsis, unspecified organism (principal); N10 Acute pyelonephritis; D64.9 Anemia, unspecified; L89.159 Pressure ulcer of sacral region, unspecified stage; I10 Essential (primary) hypertension; Z79.899 Other long term (current) drug therapy; Z79.01 Long term (current) use of anticoagulants
CPT/HCPCS: 36415; 71045; 80053; 81003; 81015; 83605; 84484; 85025; 87040; 87086; 93005; 96365; 96367; J0692; J3370

== ENCOUNTER 2022-02-19 17:10 | Inpatient (IN) | payer OTHER ==
[~2022-02-19 17:10] MED LIST: Iopamidol 300 61% 100 ML VIAL FS ONE
[2022-02-19 17:46] LABS: #Eosinphils 0.2 10x3/uL (0.0-0.5); %Basophils 0.2 % (0.0-2.0); %Eosinophils 1.3 % (0.0-6.0); %Lymphocytes 7.8 % (18.0-47.0); %Monocytes 5.2 % (0.0-10.0); %Neutrophils 84.9 % (40.0-75.0); Hemoglobin 7.7 g/dL (13.5-17.5); Mean Corpuscular HGB CONC 29.4 g/dL (32.0-36.0); Mean Corpuscular Hemoglobin 23.3 pg (27.0-33.0); Mean Corpuscular Volume 79.2 fl (81.2-95.1); Platelet Count 636 10x3/uL (150-450); RBC Distribution Width 18.5 % (11.5-14.5); Red Blood Cell (RBC) Count 3.31 10x6/uL (4.32-5.72); White Blood Cell (WBC) Count 18.8 10x3/uL (3.5-10.5)
[2022-02-19 18:00] LABS: ALT (SGPT) 19 U/L (8-55); AST (SGOT) 11 U/L (5-34); Albumin 3.3 g/dL (3.5-5.0); Alkaline Phosphatase 90 U/L (40-110); Anion Gap 14 mmol/L (10-20); BUN (Urea Nitrogen) 13 mg/dL (8.9-20.6); Bilirubin, Total 0.4 mg/dL (0.2-1.2); Calc. Creatinine Clearance 0 mL/min (70-130); Calcium 8.8 mg/dL (7.8-10.44); Carbon Dioxide 23 mmol/L (22-29); Chloride 106 mmol/L (98-107); Estimated GFR 114; Globulin 4.4 g/dL (2.4-3.5); Glucose 138 mg/dL (70-105); Potassium 4.1 mmol/L (3.5-5.1); Protein, Total 7.7 g/dL (6.0-8.3); Sodium 139 mmol/L (136-145)
[2022-02-19] MEDS ORDERED: Morphine 2 MG/ML VIAL ONE (18:02)
[2022-02-19] MEDS ORDERED: Acetaminophen 325 MG TAB ONE (18:02)
[2022-02-19] MEDS ORDERED: Cefepime 2 GM VIAL ONE (18:02)
[2022-02-19 18:08] LABS: SARS-CoV-2 NAA Rapid Test Not Detected (NotDetected)
[2022-02-19 18:12] LABS: INR-International Normal Ratio 1.1; PTT 27.4 sec (22.0-33.0); Prothrombin Time 11.8 sec (9.5-12.1)
[2022-02-19 18:16] LABS: Anisocytosis SLIGHT = 6-15 cells (100X) (0-5/hpf); Hypochromia SLIGHT = 6-15 cells (100X) (0-5/hpf); Ovalocytes SLIGHT = 2-5 cells (100X) (0-1/hpf)
[2022-02-19 18:17] LABS: Platelet Morphology Comment Appears Increased; Small Platelets MODERATE; Tear Drops SLIGHT = 2-5 cells (100X) (0-1/hpf)
[2022-02-19] MEDS ORDERED: Morphine 4 MG/ML VIAL ONE (19:14)
[2022-02-19 19:24] LABS: Bilirubin Neg (Negative); Blood, Urine 25 (Negative); Clarity Slightly Cloudy (Clear); Glucose, Urine (Dipstick) 100 mg/dL (Negative); Ketone, Urine Negative (Negative); Leukocyte 500 (Negative); Nitrite Negative (Negative); Protein, Urine (Dipstick) 30 mg/dl (Neg-Trace); Urobilinogen Normal mg/dL (Less than 2)
[2022-02-19 19:33] LABS: Bacteria/HPF Rare-Few HPF (None Seen); Mucous/LPF 1+ LPF (<2+); RBC/HPF 0-3 HPF (0-3); Yeast-Budding 1+ HPF (None Seen)
[2022-02-19] MEDS ORDERED: Clindamycin/D5W 900 MG in Premix Bag 1 BAG IVPB SCH (19:45)
[2022-02-19 20:45] LABS: Lactic Acid 1.7 mmol/L (0.5-2.2)
[2022-02-19] MEDS ORDERED: Fentanyl 100 MCG/2 ML VIAL ONE (20:49)
[2022-02-19] MEDS ORDERED: Rocuronium Bromide 10 MG/ML (10ML VIAL) ONE (20:49)
[2022-02-19] MEDS ORDERED: Dexamethasone 20 MG/5 ML VIAL ONE (20:49)
[2022-02-19] MEDS ORDERED: Lidocaine 1% PF 5 ML VIAL ONE (20:49)
[2022-02-19] MEDS ORDERED: Ondansetron PF 4 MG/2 ML Vial ONE (20:49)
[2022-02-19] MEDS ORDERED: PROPOFOL 20 ML ONE (20:49)
[2022-02-19] MEDS ORDERED: Ondansetron PF 4 MG/2 ML Vial IVP PRN (21:44)
[2022-02-19] MEDS ORDERED: Acetaminophen 650 MG Suppository PR PRN (21:44)
[2022-02-19] MEDS ORDERED: Ondansetron ODT 4 MG TAB PO PRN (21:44)
[2022-02-19 22:45] VITALS: BMI 30.4
[2022-02-19] MEDS ORDERED: Piperacillin/Tazobactam 3.375 GM in Sodium Chloride 0.9% 100 ML IVPB SCH (23:00)
[2022-02-19] MEDS: Sodium Chloride 0.9% 1,000 ML IV SCH (23:47)
[2022-02-19] MEDS: Morphine 4 MG/ML VIAL SLOW IVP PRN (23:53)
[2022-02-19] MEDS: Acetaminophen 325 MG TAB PO PRN (23:54)
[2022-02-20] MEDS ORDERED: Piperacillin/Tazobactam 3.375 GM in Sodium Chloride 0.9% 100 ML IVPB SCH (02:00)
[2022-02-20] MEDS: Acetaminophen 325 MG TAB PO PRN ×3 (04:22→18:50)
[2022-02-20 04:38] LABS: #Basophils 0.1 10x3/uL (0.0-0.2); #Monocytes 0.8 10x3/uL (0.0-1.1); #Neutrophils 22.2 10x3/uL (1.5-8.4); %Basophils 0.2 % (0.0-2.0); %Lymphocytes 6.1 % (18.0-47.0); %Monocytes 3.1 % (0.0-10.0); %Neutrophils 89.6 % (40.0-75.0); Hemoglobin 7.5 g/dL (13.5-17.5); Mean Corpuscular HGB CONC 30.5 g/dL (32.0-36.0); Mean Corpuscular Hemoglobin 23.7 pg (27.0-33.0); Mean Corpuscular Volume 77.8 fl (81.2-95.1); Mean Platelet Volume 8.4 fl (7.4-10.4); Platelet Count 575 10x3/uL (150-450); RBC Distribution Width 18.6 % (11.5-14.5); Red Blood Cell (RBC) Count 3.16 10x6/uL (4.32-5.72); White Blood Cell (WBC) Count 24.8 10x3/uL (3.5-10.5)
[2022-02-20 04:39] LABS: Anion Gap 11 mmol/L (10-20); BUN (Urea Nitrogen) 9 mg/dL (8.9-20.6); Calc. Creatinine Clearance 194 mL/min (70-130); Calcium 8.3 mg/dL (7.8-10.44); Carbon Dioxide 23 mmol/L (22-29); Chloride 108 mmol/L (98-107); Estimated GFR 115; Glucose 85 mg/dL (70-105); Potassium 3.5 mmol/L (3.5-5.1); Sodium 138 mmol/L (136-145)
[2022-02-20] MEDS: Morphine 4 MG/ML VIAL SLOW IVP PRN ×2 (05:08→18:51)
[2022-02-20] MEDS ORDERED: VANCOMYCIN 1.25 GM/250 ML BAG 1.25 GM in Premix Bag 1 BAG IVPB SCH (06:00)
[2022-02-20] MEDS ORDERED: VANCOMYCIN 1.25 GM/250 ML BAG IVPB SCH (06:00)
[2022-02-20] MEDS: Piperacillin/Tazobactam 3.375 GM in Sodium Chloride 0.9% 100 ML IVPB SCH ×3 (06:27→21:09)
[2022-02-20] MEDS: Sodium Chloride 0.9% 1,000 ML IV SCH ×2 (06:27→20:20)
[2022-02-20] MEDS: Ferrous Sulfate 325 MG TAB PO SCH (09:46)
[2022-02-20] MEDS: Lisinopril 20 MG TAB PO SCH (09:46)
[2022-02-20] MEDS: Baclofen 10 MG TAB PO SCH ×3 (09:46→20:21)
[2022-02-20] MEDS: Docusate 100 MG CAP PO SCH ×2 (09:46→19:22)
[2022-02-20] MEDS: Enoxaparin Sodium 40 MG/0.4 ML SYRINGE SC SCH (09:46)
[2022-02-20] MEDS: Gabapentin 400 MG CAP PO SCH ×3 (09:46→20:20)
[2022-02-20] MEDS: Furosemide 20 MG TAB PO SCH (09:46)
[2022-02-20 13:23] LABS: Iron Less than 8 ug/dL (65-175); Iron Binding Capacity, Total 140 mcg/dL (261-462); Transferrin, Serum 112 mg/dL (174-364)
[2022-02-20] MEDS: VANCOMYCIN 1.25 GM/250 ML BAG 1.25 GM in Premix Bag 1 BAG IVPB SCH ×2 (14:22→22:21)
[2022-02-20] MEDS: Terazosin HCl 1 MG CAP PO SCH ×2 (20:20→20:23)
[2022-02-20 21:33] LABS: Vancomycin, Trough 18.1 ug/mL
[2022-02-21] MEDS: Sodium Chloride 0.9% 1,000 ML IV SCH ×3 (05:45→15:18)
[2022-02-21] MEDS: Piperacillin/Tazobactam 3.375 GM in Sodium Chloride 0.9% 100 ML IVPB SCH ×3 (05:45→22:38)
[2022-02-21 08:11] LABS: #Eosinphils 0.7 10x3/uL (0.0-0.5); #Monocytes 0.9 10x3/uL (0.0-1.1); #Neutrophils 10.6 10x3/uL (1.5-8.4); %Basophils 0.2 % (0.0-2.0); %Eosinophils 4.8 % (0.0-6.0); %Lymphocytes 12.8 % (18.0-47.0); %Monocytes 6.7 % (0.0-10.0); Hemoglobin 7.1 g/dL (13.5-17.5); Mean Corpuscular HGB CONC 29.7 g/dL (32.0-36.0); Mean Corpuscular Hemoglobin 23.3 pg (27.0-33.0); Mean Corpuscular Volume 78.4 fl (81.2-95.1); Mean Platelet Volume 8.3 fl (7.4-10.4); Platelet Count 559 10x3/uL (150-450); RBC Distribution Width 18.3 % (11.5-14.5); Red Blood Cell (RBC) Count 3.05 10x6/uL (4.32-5.72); White Blood Cell (WBC) Count 14.1 10x3/uL (3.5-10.5)
[2022-02-21 08:22] LABS: Anion Gap 10 mmol/L (10-20); BUN (Urea Nitrogen) 6 mg/dL (8.9-20.6); Calc. Creatinine Clearance 209 mL/min (70-130); Calcium 8.6 mg/dL (7.8-10.44); Carbon Dioxide 23 mmol/L (22-29); Chloride 108 mmol/L (98-107); Estimated GFR 118; Glucose 92 mg/dL (70-105); Potassium 3.5 mmol/L (3.5-5.1); Sodium 137 mmol/L (136-145)
[2022-02-21] MEDS: Enoxaparin Sodium 40 MG/0.4 ML SYRINGE SC SCH (08:45)
[2022-02-21] MEDS: Furosemide 20 MG TAB PO SCH (08:46)
[2022-02-21] MEDS: Gabapentin 400 MG CAP PO SCH ×3 (08:46→20:27)
[2022-02-21] MEDS: Baclofen 10 MG TAB PO SCH ×3 (08:46→20:27)
[2022-02-21] MEDS: Docusate 100 MG CAP PO SCH (08:47)
[2022-02-21] MEDS: Ferrous Sulfate 325 MG TAB PO SCH (08:47)
[2022-02-21] MEDS: Acetaminophen 325 MG TAB PO PRN ×2 (08:47→20:26)
[2022-02-21] MEDS: Lisinopril 20 MG TAB PO SCH (08:47)
[2022-02-21] MEDS: VANCOMYCIN 1.25 GM/250 ML BAG 1.25 GM in Premix Bag 1 BAG IVPB SCH ×2 (11:08→22:56)
[2022-02-21] MEDS: Morphine 4 MG/ML VIAL SLOW IVP PRN (11:17)
[2022-02-21] MEDS ORDERED: Iron, Sodium Ferric Gluconate 250 MG in Sodium Chloride 0.9% 250 ML 250 ML IVPB SCH (18:00)
[2022-02-21] MEDS: Terazosin HCl 1 MG CAP PO SCH (20:26)
[2022-02-22] MEDS: Acetaminophen 325 MG TAB PO PRN ×2 (00:29→22:26)
[2022-02-22 04:32] LABS: #Eosinphils 0.7 10x3/uL (0.0-0.5); #Monocytes 0.7 10x3/uL (0.0-1.1); #Neutrophils 6.8 10x3/uL (1.5-8.4); %Basophils 0.3 % (0.0-2.0); %Lymphocytes 18.8 % (18.0-47.0); %Monocytes 7.2 % (0.0-10.0); %Neutrophils 66.2 % (40.0-75.0); Hemoglobin 7.2 g/dL (13.5-17.5); Mean Corpuscular HGB CONC 29.4 g/dL (32.0-36.0); Mean Corpuscular Hemoglobin 23.2 pg (27.0-33.0); Mean Platelet Volume 8.8 fl (7.4-10.4); Platelet Count 545 10x3/uL (150-450); RBC Distribution Width 18.3 % (11.5-14.5); White Blood Cell (WBC) Count 10.3 10x3/uL (3.5-10.5)
[2022-02-22 04:52] LABS: Anion Gap 11 mmol/L (10-20); BUN (Urea Nitrogen) 6 mg/dL (8.9-20.6); Calc. Creatinine Clearance 200 mL/min (70-130); Calcium 8.7 mg/dL (7.8-10.44); Carbon Dioxide 23 mmol/L (22-29); Chloride 108 mmol/L (98-107); Estimated GFR 116; Glucose 104 mg/dL (70-105); Potassium 3.1 mmol/L (3.5-5.1); Sodium 139 mmol/L (136-145)
[2022-02-22 05:11] LABS: Hypochromia SLIGHT = 6-15 cells (100X) (0-5/hpf); Platelet Morphology Comment Appears Increased
[2022-02-22] MEDS: Sodium Chloride 0.9% 1,000 ML IV SCH ×2 (06:07→19:17)
[2022-02-22] MEDS: Piperacillin/Tazobactam 3.375 GM in Sodium Chloride 0.9% 100 ML IVPB SCH ×2 (06:07→19:18)
[2022-02-22] MEDS: Enoxaparin Sodium 40 MG/0.4 ML SYRINGE SC SCH (09:37)
[2022-02-22] MEDS: Lisinopril 20 MG TAB PO SCH (09:38)
[2022-02-22] MEDS: Gabapentin 400 MG CAP PO SCH ×3 (09:38→22:26)
[2022-02-22] MEDS: Ferrous Sulfate 325 MG TAB PO SCH (09:38)
[2022-02-22] MEDS: Furosemide 20 MG TAB PO SCH (09:40)
[2022-02-22] MEDS: Baclofen 10 MG TAB PO SCH ×3 (09:40→22:27)
[2022-02-22] MEDS: Docusate 100 MG CAP PO SCH (09:41)
[2022-02-22] MEDS: VANCOMYCIN 1.25 GM/250 ML BAG 1.25 GM in Premix Bag 1 BAG IVPB SCH ×2 (09:42→22:27)
[2022-02-22 09:50] LABS: Vancomycin, Trough 15.4 ug/mL
[2022-02-22] MEDS: Terazosin HCl 1 MG CAP PO SCH (22:28)
[2022-02-23] MEDS ORDERED: Fluconazole 100 MG TAB PO SCH (09:00)
[2022-02-23] MEDS: Enoxaparin Sodium 40 MG/0.4 ML SYRINGE SC SCH (10:03)
[2022-02-23] MEDS: Lisinopril 20 MG TAB PO SCH (10:04)
[2022-02-23] MEDS: Furosemide 20 MG TAB PO SCH (10:04)
[2022-02-23] MEDS: Baclofen 10 MG TAB PO SCH ×3 (10:05→21:45)
[2022-02-23] MEDS: Gabapentin 400 MG CAP PO SCH ×3 (10:05→21:45)
[2022-02-23] MEDS: Ferrous Sulfate 325 MG TAB PO SCH (10:06)
[2022-02-23] MEDS: Docusate 100 MG CAP PO SCH ×2 (10:06→10:12)
[2022-02-23] MEDS: VANCOMYCIN 1.25 GM/250 ML BAG 1.25 GM in Premix Bag 1 BAG IVPB SCH ×2 (10:06→22:39)
[2022-02-23] MEDS: Morphine 2 MG/ML VIAL SLOW IVP PRN (19:51)
[2022-02-23] MEDS: Terazosin HCl 1 MG CAP PO SCH (21:45)
[2022-02-23 22:37] LABS: Vancomycin, Trough 15.2 ug/mL
[2022-02-24] MEDS: Morphine 2 MG/ML VIAL SLOW IVP PRN ×3 (02:34→14:49)
[2022-02-24 06:03] LABS: INR-International Normal Ratio 1.5; Prothrombin Time 15.9 sec (9.5-12.1)
[2022-02-24] MEDS: Lisinopril 20 MG TAB PO SCH (08:39)
[2022-02-24] MEDS: Furosemide 20 MG TAB PO SCH (08:39)
[2022-02-24] MEDS: Docusate 100 MG CAP PO SCH (08:39)
[2022-02-24] MEDS: Ferrous Sulfate 325 MG TAB PO SCH (08:39)
[2022-02-24] MEDS: Enoxaparin Sodium 40 MG/0.4 ML SYRINGE SC SCH (08:40)
[2022-02-24] MEDS: Baclofen 10 MG TAB PO SCH ×3 (08:40→20:39)
[2022-02-24] MEDS: Gabapentin 400 MG CAP PO SCH ×3 (08:40→20:39)
[2022-02-24] MEDS ORDERED: Fluconazole 100 MG TAB PO SCH (09:00)
[2022-02-24] MEDS ORDERED: Lidocaine 1% PF 5 ML VIAL ONE (10:30)
[2022-02-24] MEDS ORDERED: Sodium Bicarbonate 2.5 MEQ/5 ML VIAL ONE (10:30)
[2022-02-24] MEDS: VANCOMYCIN 1.25 GM/250 ML BAG 1.25 GM in Premix Bag 1 BAG IVPB SCH (11:16)
[2022-02-24] MEDS ORDERED: Warfarin Sodium 2.5 MG TAB PO SCH (17:00)
[2022-02-24] MEDS ORDERED: Enoxaparin Sodium 100 MG/ML SYRINGE SC SCH (21:00)
[2022-02-25 01:58] VITALS: BP 165/89; TEMP 97.5
[2022-02-26] MEDS ORDERED: Warfarin Sodium 2.5 MG TAB PO SCH (17:00)
== END 2022-02-24 20:55 | DRG 871 ==
LOC: EEVIPCON 17:10 → CSHERS 17:10 → CSHTELE 22:41
PROVIDERS: ADMIT Student in an Organized Health Care Education/Training Program; ATTEND Internal Medicine
PROC: 3E03329 Introduction of Other Anti-infective into Peripheral Vein, Percutaneous Approach (ICD-10-PCS; 2022-02-19)
PROC: 02HV33Z Insertion of Infusion Device into Superior Vena Cava, Percutaneous Approach (ICD-10-PCS; principal; 2022-02-24)
PROC: B5181ZA Fluoroscopy of Superior Vena Cava using Low Osmolar Contrast, Guidance (ICD-10-PCS; 2022-02-24)
PROC: B548ZZA Ultrasonography of Superior Vena Cava, Guidance (ICD-10-PCS; 2022-02-24)
DX: A41.02 Sepsis due to Methicillin resistant Staphylococcus aureus (principal); K65.1 Peritoneal abscess; L89.154 Pressure ulcer of sacral region, stage 4; G82.20 Paraplegia, unspecified; M86.8X8 Other osteomyelitis, other site; L02.212 Cutaneous abscess of back [any part, except buttock and flank]; B37.7 Candidal sepsis; I10 Essential (primary) hypertension; M19.90 Unspecified osteoarthritis, unspecified site; R32 Unspecified urinary incontinence; L89.899 Pressure ulcer of other site, unspecified stage; D50.9 Iron deficiency anemia, unspecified; R59.0 Localized enlarged lymph nodes; Z20.822 Contact with and (suspected) exposure to COVID-19; Z79.899 Other long term (current) drug therapy; Z98.890 Other specified postprocedural states; Z87.891 Personal history of nicotine dependence; Z86.718 Personal history of other venous thrombosis and embolism
CPT/HCPCS: 36415; 36569; 71045; 74177; 80048; 80053; 80202; 81003; 81015; 82565; 82728; 83540; 83550; 83605; 84466; 85025; 85610; 85730; 86140; 87040; 87070; 87077; 87086; 87186; 87205; 96365; 96366; 96368; 96375; 96376; 97139; C1751; J0692; J1100; J1650; J2270; J2405; J2543; J2704; J2916; J3010; J3370; J3490; J7050; Q9967; U0002

== ENCOUNTER 2023-09-29 11:07 | Emergency (ER) | payer OTHER ==
[2023-09-29 12:10] LABS: ALT (SGPT) 18 U/L (8-55); AST (SGOT) 16 U/L (5-34); Albumin 3.8 g/dL (3.5-5.0); Alkaline Phosphatase 86 U/L (40-110); Anion Gap 11 mmol/L (10-20); BUN (Urea Nitrogen) 16 mg/dL (8.9-20.6); Calc. Creatinine Clearance 0 mL/min (70-130); Calcium 9.2 mg/dL (7.8-10.44); Carbon Dioxide 26 mmol/L (22-29); Chloride 102 mmol/L (98-107); Estimated GFR 110; Glucose 101 mg/dL (70-105); Potassium 3.9 mmol/L (3.5-5.1); Protein, Total 7.8 g/dL (6.0-8.3); Sodium 135 mmol/L (136-145)
[2023-09-29 12:16] LABS: Bilirubin Neg (Negative); Blood, Urine 25 (Negative); Clarity Clear (Clear); Glucose, Urine (Dipstick) Normal (Negative); Ketone, Urine Negative (Negative); Leukocyte Negative (Negative); Nitrite Negative (Negative); Protein, Urine (Dipstick) 15 mg/dl (Neg-Trace); Specific Gravity, Urine 1.015 (1.005-1.030); Urobilinogen Normal mg/dL (Less than 2); pH, Urine 6.5 (5.0-9.0)
[2023-09-29 12:20] LABS: #Basophils 0.03 10x3/uL (0.0-0.2); #Eosinphils 0.12 10x3/uL (0.0-0.5); #Monocytes 0.99 10x3/uL (0.0-1.1); #Neutrophils 13.96 10x3/uL (1.5-8.4); %Basophils 0.2 % (0.0-2.0); %Eosinophils 0.7 % (0.0-6.0); %Lymphocytes 8.1 % (18.0-47.0); %Neutrophils 84.3 % (40.0-75.0); CRP (Inflammatory) 13.16 mg/dL (= or < 0.5); Hematocrit 38.2 % (38.8-50.0); Hemoglobin 12.6 g/dL (13.5-17.5); Mean Corpuscular Hemoglobin 26.7 pg (27.0-33.0); Mean Corpuscular Volume 80.9 fl (81.2-95.1); Mean Platelet Volume 8.8 fl (7.4-10.4); Platelet Count 313 10x3/uL (150-450); RBC Distribution Width 15.2 % (11.5-14.5); Red Blood Cell (RBC) Count 4.72 10x6/uL (4.32-5.72); White Blood Cell (WBC) Count 16.6 10x3/uL (3.5-10.5)
[2023-09-29 12:32] LABS: Bacteria/HPF Rare-Few HPF (None Seen); CAUTI Indications for Culture Pelvic or flank pain; Mucous/LPF Few LPF (<2+); RBC/HPF 0-3 HPF (0-3); WBC/HPF 0-3 HPF (0-3)
[2023-09-29 12:33] LABS: Urine Culture Reflex No No
[2023-09-29 12:42] LABS: Influenza A by NAA Not Detected (NotDetected); Influenza B by NAA Not Detected (NotDetected); SARS-CoV-2 NAA Rapid Test Not Detected (NotDetected)
[2023-09-29 12:54] LABS: Actual Bicarbonate (HCO3v) 24.9 mEq/L (22-28); Analyzer IN Cardio CS ER; Base Excess 0.9 mEq/L (-2 - +2); Calcium, Ionized (venous) 1.14 mmol/L (1.16-1.32); Chloride (VBG) 101 mmol/L (98-106); Hematocrit-VBG 40 % (42.0-52.0); Hemoglobin (Hb) 13.7 g/dL (13.1-17.2); Potassium (VBG) 3.81 mmol/L (3.70-5.30); Puncture Site Other Site; RapidComm Collect By cbn; Sodium 138 mmol/L (133-146); pH (venous) 7.434 (7.32-7.43)
[2023-09-29] MEDS ORDERED: traMADol HCl 50 MG TAB ONE (15:43)
== END 2023-09-29 16:15 | disposition home or self-care (01) ==
LOC: CSHERS 11:07 → EEVIPCON 11:07 → CSHERS 16:15
DX: R50.9 Fever, unspecified (principal); I10 Essential (primary) hypertension; Z79.899 Other long term (current) drug therapy
CPT/HCPCS: 36415; 71045; 80053; 81001; 82805; 83605; 83735; 85025; 86140; 87040; 87077; 87086; 87149; 87186; 93005

== ENCOUNTER 2023-09-30 10:11 | Emergency (ER) | payer OTHER ==
[2023-09-30] MEDS ORDERED: Ibuprofen 200 MG TAB ONE (10:36)
[2023-09-30] MEDS ORDERED: Acetaminophen 500 MG TAB ONE (10:37)
[2023-09-30 11:08] LABS: #Basophils 0.02 10x3/uL (0.0-0.2); #Eosinphils 0.11 10x3/uL (0.0-0.5); #Monocytes 0.87 10x3/uL (0.0-1.1); #Neutrophils 9.27 10x3/uL (1.5-8.4); %Basophils 0.2 % (0.0-2.0); %Lymphocytes 5.6 % (18.0-47.0); %Monocytes 7.9 % (0.0-10.0); %Neutrophils 84.7 % (40.0-75.0); Hematocrit 36.5 % (38.8-50.0); Hemoglobin 12.2 g/dL (13.5-17.5); Mean Corpuscular HGB CONC 33.4 g/dL (32.0-36.0); Mean Corpuscular Hemoglobin 27.2 pg (27.0-33.0); Mean Corpuscular Volume 81.5 fl (81.2-95.1); Mean Platelet Volume 9.1 fl (7.4-10.4); Platelet Count 260 10x3/uL (150-450); RBC Distribution Width 15.2 % (11.5-14.5); Red Blood Cell (RBC) Count 4.48 10x6/uL (4.32-5.72)
[2023-09-30 11:21] LABS: ALT (SGPT) 27 U/L (8-55); AST (SGOT) 28 U/L (5-34); Albumin 3.4 g/dL (3.5-5.0); Alkaline Phosphatase 80 U/L (40-110); Anion Gap 12 mmol/L (10-20); BUN (Urea Nitrogen) 12 mg/dL (8.9-20.6); Bilirubin, Total 0.7 mg/dL (0.2-1.2); Calc. Creatinine Clearance 0 mL/min (70-130); Calcium 9.1 mg/dL (7.8-10.44); Carbon Dioxide 25 mmol/L (22-29); Chloride 103 mmol/L (98-107); Estimated GFR 110; Globulin 4.6 g/dL (2.4-3.5); Glucose 106 mg/dL (70-105); Potassium 3.9 mmol/L (3.5-5.1); Sodium 136 mmol/L (136-145)
[2023-09-30] MEDS ORDERED: Vancomycin 2.5 GM Sodium Chloride 0.9% 500 ML IVPB SCH (12:30)
[2023-09-30] MEDS ORDERED: Morphine 4 MG/ML VIAL ONE (12:45)
[2023-09-30] MEDS ORDERED: Ondansetron PF 4 MG/2 ML Vial ONE (12:45)
== END 2023-09-30 13:39 | disposition short-term general hospital (02) ==
LOC: EEVIPCON 10:11 → CSHERS 10:11
DX: A41.9 Sepsis, unspecified organism (principal); I10 Essential (primary) hypertension
CPT/HCPCS: 80053; 83605; 85025; 96365; 96375; J2270; J2405; J3370; J7030

== ENCOUNTER 2024-07-07 04:04 | Emergency (ER) | payer OTHER ==
[2024-07-07] MEDS ORDERED: Pantoprazole 40 MG VIAL ONE (04:27)
[2024-07-07 05:09] LABS: ALT (SGPT) 20 U/L (8-55); AST (SGOT) 20 U/L (5-34); Albumin 3.9 g/dL (3.5-5.0); Alkaline Phosphatase 88 U/L (40-110); Anion Gap 14 mmol/L (10-20); BUN (Urea Nitrogen) 14 mg/dL (8.4-25.7); Bilirubin, Total 0.3 mg/dL (0.2-1.2); Calc. Creatinine Clearance 0 mL/min (70-130); Calcium 10.2 mg/dL (7.8-10.44); Carbon Dioxide 23 mmol/L (22-29); Chloride 106 mmol/L (98-107); Estimated GFR 101; Glucose 96 mg/dL (70-105); Potassium 4.2 mmol/L (3.5-5.1); Protein, Total 8.9 g/dL (6.0-8.3); Sodium 139 mmol/L (136-145)
[2024-07-07 05:41] LABS: Bilirubin Neg (Negative); Blood, Urine 25 (Negative); Glucose, Urine (Dipstick) Normal (Negative); Ketone, Urine Negative (Negative); Leukocyte Negative (Negative); Nitrite Negative (Negative); Protein, Urine (Dipstick) Negative (Neg-Trace); Specific Gravity, Urine 1.005 (1.005-1.030); Urobilinogen Normal mg/dL (Less than 2)
[2024-07-07 05:43] LABS: Clarity Clear (Clear)
[2024-07-07 05:51] LABS: #Basophils 0.05 10x3/uL (0.0-0.2); #Monocytes 1.26 10x3/uL (0.0-1.1); %Basophils 0.2 % (0.0-2.0); %Eosinophils 0.4 % (0.0-6.0); %Lymphocytes 3.6 % (18.0-47.0); %Monocytes 5.5 % (0.0-10.0); %Neutrophils 89.5 % (40.0-75.0); Hematocrit 40.3 % (38.8-50.0); Hemoglobin 12.7 g/dL (13.5-17.5); Mean Corpuscular HGB CONC 31.5 g/dL (32.0-36.0); Mean Corpuscular Hemoglobin 25.5 pg (27.0-33.0); Mean Corpuscular Volume 80.9 fL (81.2-95.1); Mean Platelet Volume 8.6 fL (7.4-10.4); Platelet Count 313 10x3/uL (150-450); Red Blood Cell (RBC) Count 4.98 10x6/uL (4.32-5.72); White Blood Cell (WBC) Count 22.9 10x3/uL (3.5-10.5)
[2024-07-07 05:57] LABS: Bacteria/HPF Rare-Few HPF (None Seen); CAUTI Indications for Culture Fever or rigors; Squamous Epithelial 0-3 HPF (0-3); WBC/HPF 0-3 HPF (0-3)
[2024-07-07 05:58] LABS: Urine Culture Reflex No No
[2024-07-07] MEDS ORDERED: Piperacillin/Tazobactam 4.5 GM VIAL ONE (06:06)
[2024-07-07] MEDS ORDERED: traMADol HCl 50 MG TAB ONE (06:07)
[2024-07-07] MEDS ORDERED: Doxycycline 100 MG VIAL ONE (07:40)
[2024-07-07] MEDS ORDERED: Ketorolac Tromethamine 30 MG (1 mL) VIAL ONE (10:19)
== END 2024-07-07 10:34 | disposition short-term general hospital (02) ==
LOC: CSHERS 04:04 → EEVIPCON 04:04 → CSHERS 10:34
DX: A41.9 Sepsis, unspecified organism (principal); L03.313 Cellulitis of chest wall; I10 Essential (primary) hypertension; D64.9 Anemia, unspecified; M19.90 Unspecified osteoarthritis, unspecified site; G82.20 Paraplegia, unspecified; Z79.01 Long term (current) use of anticoagulants; Z79.899 Other long term (current) drug therapy
CPT/HCPCS: 36415; 51701; 71045; 80053; 81001; 83605; 85025; 87040; 87086; 87428; 96365; 96366; 96368; 96375; J1885; J2470; J2543

== ENCOUNTER 2025-05-11 09:32 | Inpatient (IN) | payer OTHER ==
[2025-05-11 10:57] LABS: #Basophils 0.03 10x3/uL (0.0-0.2); #Eosinophils 0.15 10x3/uL (0.0-0.5); #Monocytes 0.79 10x3/uL (0.0-1.1); #Neutrophils 19.35 10x3/uL (1.5-8.4); %Basophils 0.1 % (0.0-2.0); %Eosinophils 0.7 % (0.0-6.0); %Lymphocytes 4.2 % (18.0-47.0); %Monocytes 3.7 % (0.0-10.0); %Neutrophils 90.6 % (40.0-75.0); Hematocrit 39.9 % (38.8-50.0); Hemoglobin 12.9 g/dL (13.5-17.5); Mean Corpuscular Hemoglobin 26.2 pg (27.0-33.0); Mean Corpuscular Volume 80.9 fL (81.2-95.1); Platelet Count 294 10x3/uL (150-450); Red Blood Cell (RBC) Count 4.93 10x6/uL (4.32-5.72); White Blood Cell (WBC) Count 21.36 10x3/uL (3.5-10.5)
[2025-05-11 10:59] LABS: Actual Bicarbonate (HCO3v) 24.8 mEq/L (22-28); Analyzer IN Cardio CS ER; Base Excess -0.9 mEq/L (-2 - +2); Calcium, Ionized (venous) 1.13 mmol/L (1.16-1.32); Chloride (VBG) 102 mmol/L (98-106); Hematocrit-VBG 42 % (42.0-52.0); Hemoglobin (Hb) 14.3 g/dL (13.1-17.2); Potassium (VBG) 3.58 mmol/L (3.70-5.30); Puncture Site Other Site; RapidComm Collect By LAB; Sodium 137 mmol/L (133-146)
[2025-05-11] MEDS ORDERED: Ketorolac Tromethamine 30 MG (1 mL) VIAL ONE (11:05)
[2025-05-11] MEDS ORDERED: Acetaminophen 325 MG TAB ONE (11:05)
[2025-05-11] MEDS ORDERED: Cefepime 2 GM VIAL ONE (11:11)
[2025-05-11 11:13] LABS: ALT (SGPT) 14 U/L (Less than 45); AST (SGOT) 20 U/L (11-34); Albumin 4.0 g/dL (3.1-4.5); Alkaline Phosphatase 93 U/L (40-110); Anion Gap 15 mmol/L (10-20); BUN (Urea Nitrogen) 10 mg/dL (8.4-25.7); Bilirubin, Total 0.4 mg/dL (0.3-1.2); Calc. Creatinine Clearance 0 mL/min (70-130); Calcium 9.1 mg/dL (7.8-10.44); Carbon Dioxide 23 mmol/L (22-29); Chloride 103 mmol/L (98-107); Globulin 4.3 g/dL (2.4-3.5); Glucose 108 mg/dL (70-105); Potassium 3.5 mmol/L (3.5-5.1); Sodium 137 mmol/L (136-145)
[2025-05-11 12:34] LABS: Glucose, Urine (Dipstick) Normal (Negative); Leukocyte 100 (Negative); Protein, Urine (Dipstick) 15 mg/dl (Neg-Trace); Specific Gravity, Urine 1.010 (1.005-1.030)
[2025-05-11 12:54] LABS: Bacteria/HPF 1+ HPF (None Seen); CAUTI Indications for Culture Pelvic or flank pain; RBC/HPF 0-3 HPF (0-3); Urine Culture Reflex No No
[2025-05-11] MEDS ORDERED: Iopamidol 300 61% 100 ML VIAL FS ONE (13:48)
[2025-05-11] MEDS ORDERED: Ondansetron PF 4 MG/2 ML Vial IVP PRN (16:11)
[2025-05-11 17:17] VITALS: BMI 30.7
[2025-05-11] MEDS: cefTRIAXone\\ROCEPHIN 1 GM in Sodium Chloride 0.9% 100 ML IVPB SCH (17:36)
[2025-05-11] MEDS ORDERED: Etomidate 40 MG (20 mL) VIAL ONE ×2 (20:58→21:01)
[2025-05-11] MEDS ORDERED: Rocuronium Bromide 10 MG/ML (10ML VIAL) ONE (20:58)
[2025-05-11] MEDS ORDERED: Vancomycin 1 GM in Premix 1 BAG IVPB SCH (21:00)
[2025-05-11] MEDS: Gabapentin 300 MG CAP PO SCH (22:22)
[2025-05-11] MEDS: Famotidine 20 MG TAB PO SCH (22:22)
[2025-05-11] MEDS: Baclofen 10 MG TAB PO SCH (22:22)
[2025-05-11] MEDS: VANCOMYCIN 1.75 GM/350 ML BAG 1.75 GM in Premix 1 BAG IVPB SCH (22:23)
[2025-05-12 04:41] LABS: #Basophils 0.03 10x3/uL (0.0-0.2); #Eosinophils 0.50 10x3/uL (0.0-0.5); #Monocytes 0.61 10x3/uL (0.0-1.1); #Neutrophils 12.52 10x3/uL (1.5-8.4); %Basophils 0.2 % (0.0-2.0); %Eosinophils 3.3 % (0.0-6.0); %Lymphocytes 9.6 % (18.0-47.0); %Monocytes 4.0 % (0.0-10.0); %Neutrophils 82.5 % (40.0-75.0); Hematocrit 34.8 % (38.8-50.0); Hemoglobin 11.4 g/dL (13.5-17.5); Mean Corpuscular Hemoglobin 26.3 pg (27.0-33.0); Mean Corpuscular Volume 80.4 fL (81.2-95.1); Platelet Count 270 10x3/uL (150-450); Red Blood Cell (RBC) Count 4.33 10x6/uL (4.32-5.72); White Blood Cell (WBC) Count 15.17 10x3/uL (3.5-10.5)
[2025-05-12 04:52] LABS: Vancomycin, Random 28.0 ug/mL (See Comment)
[2025-05-12] MEDS: Lisinopril 20 MG TAB PO SCH (09:26)
[2025-05-12] MEDS: VANCOMYCIN 1.25 GM/250 ML BAG 1.25 GM in Premix 1 BAG IVPB SCH (09:26)
[2025-05-12] MEDS: Enoxaparin 40 MG (0.4 mL) SYRINGE SC SCH (09:26)
[2025-05-12 14:11] VITALS: BMI 30.7
[2025-05-12] MEDS: Acetaminophen 325 MG TAB PO PRN (15:37)
[2025-05-12] MEDS: Linezolid 600 MG TAB PO SCH (21:12)
[2025-05-13] MEDS: Acetaminophen/Codeine 30-300mg Tablet PO PRN (04:55)
[2025-05-13 08:34] LABS: #Basophils Less than 0.03 10x3/uL (0.0-0.2); #Eosinophils 0.60 10x3/uL (0.0-0.5); #Monocytes 0.70 10x3/uL (0.0-1.1); #Neutrophils 7.35 10x3/uL (1.5-8.4); %Basophils 0.2 % (0.0-2.0); %Eosinophils 5.9 % (0.0-6.0); %Lymphocytes 14.8 % (18.0-47.0); %Monocytes 6.9 % (0.0-10.0); %Neutrophils 72.0 % (40.0-75.0); Hematocrit 38.2 % (38.8-50.0); Hemoglobin 11.5 g/dL (13.5-17.5); Mean Corpuscular Hemoglobin 24.9 pg (27.0-33.0); Mean Corpuscular Volume 82.7 fL (81.2-95.1); Platelet Count 282 10x3/uL (150-450); Red Blood Cell (RBC) Count 4.62 10x6/uL (4.32-5.72); White Blood Cell (WBC) Count 10.20 10x3/uL (3.5-10.5)
[2025-05-14 04:30] LABS: #Basophils Less than 0.03 10x3/uL (0.0-0.2); #Eosinophils 0.57 10x3/uL (0.0-0.5); #Monocytes 0.72 10x3/uL (0.0-1.1); #Neutrophils 5.08 10x3/uL (1.5-8.4); %Basophils 0.3 % (0.0-2.0); %Eosinophils 7.2 % (0.0-6.0); %Lymphocytes 18.7 % (18.0-47.0); %Monocytes 9.1 % (0.0-10.0); %Neutrophils 64.3 % (40.0-75.0); Hematocrit 36.0 % (38.8-50.0); Hemoglobin 11.3 g/dL (13.5-17.5); Mean Corpuscular Hemoglobin 25.7 pg (27.0-33.0); Mean Corpuscular Volume 81.8 fL (81.2-95.1); Platelet Count 275 10x3/uL (150-450); Red Blood Cell (RBC) Count 4.40 10x6/uL (4.32-5.72); White Blood Cell (WBC) Count 7.90 10x3/uL (3.5-10.5)
[2025-05-14 08:30] VITALS: TEMP 98.3
[2025-05-14] MEDS: Clindamycin 150 MG CAP PO SCH (08:59)
[2025-05-14 11:44] VITALS: BP 175/102
== END 2025-05-14 15:10 | DRG 872 ==
LOC: CSHERS 09:32 → EEVIPCON 09:32 → CSHTELE 14:55
PROVIDERS: ADMIT Internal Medicine; ATTEND Internal Medicine
DX: A41.9 Sepsis, unspecified organism (principal); G04.1 Tropical spastic paraplegia; M86.9 Osteomyelitis, unspecified; L03.115 Cellulitis of right lower limb; E87.20 Acidosis, unspecified; L97.419 Non-pressure chronic ulcer of right heel and midfoot with unspecified severity; I10 Essential (primary) hypertension; D64.9 Anemia, unspecified; Z91.014 Allergy to mammalian meats; Z91.018 Allergy to other foods; Z98.890 Other specified postprocedural states; Z86.718 Personal history of other venous thrombosis and embolism; Z91.048 Other nonmedicinal substance allergy status; R32 Unspecified urinary incontinence; R82.71 Bacteriuria; L89.159 Pressure ulcer of sacral region, unspecified stage
CPT/HCPCS: 36415; 71045; 71260; 80053; 80202; 81001; 82805; 83605; 85025; 87040; 87077; 87081; 87086; 87186; 87428; 94760; 96365; 96375; 97139; J0692; J0696; J1650; J1885; J3373; J3375; J7030; Q9967